=== PATIENT | male | born 1970 | race Hispanic/Latino ===

== ENCOUNTER 2016-12-19 12:27 | Emergency (ER) | payer OTHER ==
[~2016-12-19] VITALS: Ht 175.3 cm; Wt 95.3 kg
[2016-12-19 12:46] VITALS: BP 135/90
--- NOTE | 2016-12-19 13:16 | ED GI/GU/ABDOMINAL COMPLAINT ---
History of Present Illness General Chief Complaint: Abdominal Pain/Flank Pain Stated Complaint: ABD PAIN Source: patient Exam Limitations: no limitations Allergies Coded Allergies: No Known Allergies (12/19/16) Triage Note: PT TO ED FOR R SIDED ABD PAIN THAT BEGAN LAST NIGHT WELL "A SORE THROAT WHEN I COUGH." PT DENIES ANY N/V/D. REPORTING DRY COUGH BEGAN LAST NIGHT. Triage Nurses Notes Reviewed? yes HPI: Patient is a 46 year old male presents complaining of sore throat, cough and abdominal pain. Nasal congestion, cough, and sore throat onset 2 days ago. Mild epigastric pain x 1-2 days. Using chloraseptic spray with initial improvement of sore throat, no improvement today. Symptoms are currently moderate. Denies sick contacts, nausea, vomiting, urinary symptoms, dyspnea. (JEREMIAH FONTANEZ) Vital Signs & Intake/Output Vital Signs & Intake/Output ED Intake and Output / 0000 04 1200 Intake Total 0 Output Total Balance 0 Intake, Oral 0 Patient 210 lb Weight Reconcile Medications Albuterol Sulfate (Proair Hfa) 90 MCG HFA.AER.AD 2 PUF INH Q4-6 PRN PRN SOB, COUGH Azithromycin (Zithromax) 250 MG TABLET 1 DP PO AD BRONCHITIS 2 the first day followed by 1 for days 2-5 Benzonatate (Tessalon Perle) 100 MG CAPSULE 1 CAP PO TID COUGH Triage Nurses Notes Reviewed? yes (MELISA JACOBO) Past History Travel History Traveled to [place] past 21 day No Medical History Any Pertinent Medical History? none Neurological: NONE EENT: NONE Cardiovascular: NONE Respiratory: NONE Gastrointestinal: NONE Hepatic: NONE Renal: NONE Musculoskeletal: NONE Psychiatric: NONE Endocrine: NONE Blood Disorders: NONE Cancer(s): NONE SAP SOLUTIONS ARCHITECT/Reproductive: NONE Psychosocial History What is your primary language Malaysian Tobacco Use: Current Daily Use Daily Tobacco Use Amount/Type: => 5 Cigarettes daily ETOH Use: occasional use Illicit Drug Use: marijuana Family History Hx Contributory? No (JEREMIAH FONTANEZ) Surgical History Surgical History: non-contributory (MELISA JACOBO) Review of Systems Review of Systems Constitutional: Reports: chills. EENTM: Reports: nasal congestion, throat pain. Respiratory: Reports: cough. Denies: short of breath, wheezing. Cardiovascular: Denies: chest pain. GI: Reports: see HPI, abdominal pain. Denies: nausea, vomiting. Genitourinary: Reports: no symptoms. Musculoskeletal: Reports: no symptoms. Skin: Reports: no symptoms. Neurological/Psychological: Reports: no symptoms. Hematologic/Endocrine: Reports: no symptoms. Immunologic/Allergic: Reports: no symptoms. (JEREMIAH FONTANEZ) Physical Exam Physical Exam General Appearance: well developed/nourished, alert, awake Head: atraumatic, normal appearance Eyes: Bilateral: normal appearance, PERRL, EOMI. Ears, Nose, Throat, Mouth: hearing grossly normal, moist mucous membrane, Tympanic normal, left tonsillar 3+, right tonsil 1+. No visible peritonsillar abscess, no tonsillar exudates Neck: normal inspection, supple, full range of motion Respiratory: no respiratory distress, minimal intermittent end expiratory wheezing Cardiovascular: tachycardia (regular rhythm) Gastrointestinal: normal bowel sounds, soft, non-tender, negative leone's sign, negative mcburney's point tenderness Back: normal inspection, normal range of motion Extremities: normal range of motion Neurologic/Psych: no motor/sensory deficits, awake, alert, oriented x 3, normal gait, normal mood/affect Skin: intact, normal color, warm/dry (JEREMIAH FONTANEZ) Core Measures ACS in differential dx? No Severe Sepsis Present: No Septic Shock Present: No (MELISA JACOBO) Progress Differential Diagnosis: GASTRITIS, BRONCHITIS, COSTOCHONDRITIS, PLEURISY, UPPER RESPIRATORY INFECTION, SINUSITIS, PANCREATITIS Initial ED EKG: none Hand-Off Endorsed To: MELISA JACOBO Endorsed Time: 1343 Pending: labs (JEREMIAH FONTANEZ) Differential Diagnosis: GASTRITIS, BRONCHITIS, COSTOCHONDRITIS, PLEURISY, UPPER RESPIRATORY INFECTION, SINUSITIS, PANCREATITIS Plan of Care: Orders Procedure Date/time Status RAPID VIRAL INFLUENZA A 12/19 1322 Active THROAT CULTURE W/QUICK STREP 12/19 1321 Active URINALYSIS 12/19 1321 Active LIPASE 12/19 1321 Active COMPREHENSIVE METABOLIC PANEL 12/19 1321 Active CBC WITHOUT DIFFERENTIAL 12/19 1321 Active Microbiology 12/19 1326 NASOPHARYN: Influenza Virus A & B Rapid Smear - RECD Fever of 101.6 on initial exam. 1340: Signed out to Melisa Overton PA-C with labs pending. (JEREMIAH FONTANEZ) Comments: 12/19/2016 2:05:48 PM patient signed out to me pending lab work. 12/19/2016 2:36:04 PM patient reporting that he feels much better from by mouth medication he was given on arrival. Blood work unremarkable. Patient has had no abdominal pain on exam, is a daily smoker with history of cough. Patient will be treated for bronchitis. Started on Z-Ken, Tessalon Perles and pro-air. He'll follow up with his PCP. Educated on smoking cessation. (MELISA JACOBO) Departure Departure Condition: Stable Referrals: PATIENT HAS NO PRIMARY CARE DR (PCP/Family) Departure Forms: Customer Survey General Discharge Information (JEREMIAH FONTANEZ) Departure Time of Disposition: 2 Disposition: HOME OR SELF CARE Clinical Impression Primary Impression: Bronchitis Ruled Out Impressions: Upper respiratory disease Additional Instructions: Follow-up with your primary care physician call to make an appointment. Increase fluids. Take Z-Ken and Tessalon Perles, use albuterol inhaler as directed. Quit smoking as this will help avoid future exacerbations of bronchitis. Prescriptions: Current Visit Scripts Albuterol Sulfate (Proair Hfa) 2 PUF INH Q4-6 PRN PRN SOB,COUGH #1 INHAL Benzonatate (Tessalon Perle) 1 CAP PO TID #30 CAP Azithromycin (Zithromax) 1 DP PO AD #6 TAB 2 the first day followed by 1 for days 2-5 (MELISA JACOBO) PA/NURSE EPIDEMIOLOGIST Co-Sign Statement Statement: ED Attending supervision documentation- [] I saw and evaluated the patient. I have also reviewed all the pertinent lab results and diagnostic results. I agree with the findings and the plan of care as documented in the PA's/NURSE EPIDEMIOLOGIST's documentation. [X] I have reviewed the ED Record and agree with the PA's/NURSE EPIDEMIOLOGIST's documentation. [] Additions or exceptions (if any) to the PAs/NURSE EPIDEMIOLOGIST's note and plan are summarized below: [] (RADHA TORRES,TANMAY Gay)
[2016-12-19 14:01] LABS: ABSOLUTE BASOPHIL COUNT 0 /CUMM (0.0-0.2); ABSOLUTE EOSINOPHIL COUNT 0 /CUMM (0.0-0.7); ABSOLUTE LYMPH COUNT 1.5 /CUMM (1.2-3.4); ABSOLUTE MONOCYTE COUNT 1.4 /CUMM (0.10-0.60); BASOPHIL % 0.2 % (0.0-2.0); EOSINOPHIL % 0 % (0-5); GRANULOCYTE % 73.1 % (42.2-75.2); HEMATOCRIT 47.4 % (42-52); MEAN CORPUSCULAR HGB CONC 34.3 G/DL (33.0-37.0); MEAN CORPUSCULAR VOLUME 87.5 FL (80.0-94.0); MEAN PLATELET VOLUME 9.6 FL (7.4-10.4); PLATELET COUNT 118 /CUMM (130-400); RBC DISTRIBUTION WIDTH 13.4 % (11.5-14.5); RED BLOOD CELL CT 5.42 /CUMM (4.70-6.10); WHITE BLOOD CELL COUNT 10.9 /CUMM (4.8-10.8)
[2016-12-19] MEDS ORDERED: PROAIR HFA8.5 GM INH (14:34)
[2016-12-19] MEDS ORDERED: TESSALON PERLE100 M1 PO (14:34)
[2016-12-19] MEDS ORDERED: ZITHROMAX250 M2 PO (14:34)
== END 2016-12-19 14:56 ==
LOC: ERH 12:27
PROVIDERS: Physician Assistant
DX: J40 Bronchitis, not specified as acute or chronic (principal); J39.9 Disease of upper respiratory tract, unspecified; F17.210 Nicotine dependence, cigarettes, uncomplicated
CPT/HCPCS: 87804; 87804-59

== ENCOUNTER 2018-02-11 10:23 | Emergency (ER) | payer OTHER ==
[~2018-02-11] VITALS: Ht 175.3 cm; Wt 104.3 kg
[~2018-02-11 10:23] MED LIST: AMOXICILLIN500 M3 PO; BACTRIM DS TAB1 EACH PO; IBUPROFEN800 M1 PO; PROAIR HFA8.5 GM INH; TESSALON PERLE100 M1 PO; ZITHROMAX250 M2 PO
[2018-02-11 10:31] VITALS: BP 127/93
[2018-02-11] MEDS ORDERED: AMOXICILLIN500 M2 PO (11:16)
[2018-02-11] MEDS ORDERED: BACTRIM DS TAB1 EACH PO (11:16)
--- NOTE | 2018-02-11 11:18 | ED THROAT/DENTAL COMPLAINT ---
History of Present Illness General Chief Complaint: General Adult Stated Complaint: NEEDS MED REFILL Source: patient Exam Limitations: no limitations Vital Signs & Intake/Output Vital Signs & Intake/Output Vital Signs Date Time Temp Pulse Resp B/P B/P Pulse O2 O2 Flow FiO2 Mean Ox Delivery Rate 02/11 1031 97.8 106 20 127/93 96 Room Air Allergies Coded Allergies: No Known Allergies (12/19/16) Reconcile Medications Amoxicillin 500 MG TABLET 1 TAB PO TID abscess Amoxicillin 500 MG CAPSULE 1 CAP PO TID DENTAL ABSCESS Ibuprofen 800 MG TABLET 1 TAB PO TID PRN pain Sulfamethoxazole/Trimethoprim (Bactrim Ds Tablet) 800 MG-160 MG TABLET 1 TAB PO BID abscess Sulfamethoxazole/Trimethoprim (Bactrim Ds Tablet) 800 MG-160 MG TABLET 1 TAB PO BID DENTAL ABSCESS Triage Note: SEEN HERE 3 WEEKS AGO FOR DENTAL ABSCESS AND RX'D AMOXICILLAN. STATES IT WENT ALL THE WAY DOWN AND HE STOPPED TAKING THE MEDICATION. STATES THE ABSCESS IS BACK NOW. PT STATES HE HAS NO DENTAL INSURANCE Triage Nurses Notes Reviewed? yes HPI: Patient is a 48-year-old male with past medical history of a right-sided lower dental abscess who presents today for a medication refill. He had been seen previously and was prescribed Bactrim 800 mg twice daily and amoxicillin 500 mg 3 times daily. This brought his swelling down quickly and effectively, however he did not see a dentist during that time, and after cessation of the Bactrim, his swelling almost immediately returned. He denies pain, or any other complaints. Past History Travel History Traveled to [place] past 21 day No Medical History Any Pertinent Medical History? 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 No Review of Systems Review of Systems Constitutional: Reports: see HPI. Denies: chills, diaphoresis, fever, malaise, weakness. EENTM: Reports: tooth pain. Respiratory: Reports: no symptoms. Cardiovascular: Reports: no symptoms. GI: Reports: no symptoms. Genitourinary: Reports: no symptoms. Musculoskeletal: Reports: no symptoms. Skin: Reports: no symptoms. Neurological/Psychological: Reports: no symptoms. Hematologic/Endocrine: Reports: no symptoms. Immunologic/Allergic: Reports: no symptoms. All Other Systems: Reviewed and Negative Physical Exam Physical Exam Mouth/Throat: excessive drooling, mandibular swelling Comments: HEENT: Inspection of the head reveals a normocephalic cranium with no signs of trauma. Dental: There is obvious right-sided mandibular focal area of swelling consistent with dental abscess. No fluctuance that would be amenable to ED incision and drainage currently. No airway compromise whatsoever. Ophtho: Extraocular muscles are intact. The sclera are noninjected, and there is no obvious discharge. Neck: No signs of trauma or asymmetry to the neck. Respiratory: The patient exhibits no signs of labored breathing. Cardiac: Non-tachycardic. GI: No gross abdominal distention. : Deferred Neuro: The patient is oriented to person, place, time, and situation, with no obvious focal motor deficits. Cranial nerves II through XII are intact, and gait is normal. Behavioral: Calm and cooperative Dermatologic: Dermatologic examination reveals no obvious rashes or exanthems. Core Measures ACS in differential dx? No Sepsis Present: No Sepsis Focused Exam Completed? No Progress Differential Diagnosis: odontogenic abscess, meredith-tonsillar abscess, tooth fracture Plan of Care: Patient has plans to see a dentist, but was told that he could not be evaluated until the swelling went down. Bactrim was effective for his swelling previously , so I have refilled this prescription to his pharmacy along with the amoxicillin. He has no airway, minus, fever, chills, or any other concerns for sepsis or other constitutional processes at present. Meckel screening examination otherwise negative, patient stable at time of discharge. Will follow-up with dental for definitive infection control. Departure Departure Time of Disposition: 110 Disposition: HOME OR SELF CARE Condition: Stable Clinical Impression Primary Impression: Dental abscess Referrals: Patient Has No Primary Care Dr (PCP/Family) Additional Instructions: We have refilled your trimethoprim/sulfamethoxazole (Bactrim) and your amoxicillin. Once the swelling goes down, please see a dentist to get this taken care of. We recommend that you call to set up that appointment now in order to have it scheduled when the swelling decreases. Departure Forms: Customer Survey General Discharge Information Prescriptions: Current Visit Scripts Sulfamethoxazole/Trimethoprim (Bactrim Ds Tablet) 1 TAB PO BID #20 TAB Amoxicillin 1 CAP PO TID #30 CAP ED Attending Observation Initial Observation Note: I have seen and personally examined PINEDA REAL on 02/11/18 at 1125. I agree with the current emergency department documentation. The disposition (admission or discharge) is uncertain at this time, he needs a period of observation for the following reason(s): The ED Nurse caring for this patient has been personally informed as to what the patient is being observed for.
== END 2018-02-11 11:28 ==
LOC: ERH 10:23
DX: K04.7 Periapical abscess without sinus (principal)
CPT/HCPCS: 99281

== ENCOUNTER 2018-03-11 16:00 | Emergency (ER) | payer OTHER ==
[~2018-03-11] VITALS: Ht 175.3 cm; Wt 104.3 kg
[~2018-03-11 16:00] MED LIST changes: +AMOXICILLIN500 M2 PO
[2018-03-11 16:28] LABS: ABSOLUTE BASOPHIL COUNT 0 /CUMM (0.0-0.2); ABSOLUTE EOSINOPHIL COUNT 0.1 /CUMM (0.0-0.7); ABSOLUTE LYMPH COUNT 2.8 /CUMM (1.2-3.4); ABSOLUTE MONOCYTE COUNT 0.9 /CUMM (0.10-0.60); BASOPHIL % 0.3 % (0.0-2.0); EOSINOPHIL % 1.2 % (0-5); HEMATOCRIT 44.9 % (42-52); MEAN CORPUSCULAR HGB 29.9 PG (27.0-31.0); MEAN CORPUSCULAR HGB CONC 33.9 G/DL (33.0-37.0); MEAN CORPUSCULAR VOLUME 88.1 FL (80.0-94.0); MEAN PLATELET VOLUME 8.9 FL (7.4-10.4); PLATELET COUNT 189 /CUMM (130-400); RBC DISTRIBUTION WIDTH 13.8 % (11.5-14.5); RED BLOOD CELL CT 5.09 /CUMM (4.70-6.10); WHITE BLOOD CELL COUNT 9.8 /CUMM (4.8-10.8)
--- NOTE | 2018-03-11 16:45 | ED GI/GU/ABDOMINAL COMPLAINT ---
History of Present Illness General Chief Complaint: Abdominal Pain/Flank Pain Stated Complaint: RT SIDED ABD PAIN Source: patient Exam Limitations: no limitations Vital Signs & Intake/Output Vital Signs & Intake/Output Vital Signs Date Time Temp Pulse Resp B/P B/P Pulse O2 O2 Flow FiO2 Mean Ox Delivery Rate 03/11 1859 142/88 03/11 1604 97.2 77 18 149/100 98 Room Air Allergies Coded Allergies: No Known Allergies (12/19/16) Reconcile Medications Amoxicillin 500 MG TABLET 1 TAB PO TID abscess Amoxicillin 500 MG CAPSULE 1 CAP PO TID DENTAL ABSCESS Ibuprofen 800 MG TABLET 1 TAB PO TID PRN pain Sulfamethoxazole/Trimethoprim (Bactrim Ds Tablet) 800 MG-160 MG TABLET 1 TAB PO BID abscess Sulfamethoxazole/Trimethoprim (Bactrim Ds Tablet) 800 MG-160 MG TABLET 1 TAB PO BID DENTAL ABSCESS Triage Note: 48 YO MALE TO TRIAGE FOR EVAL OF ?HERNIA IN ABD FOR APPROX 6 MONTHS. STATES "I HAVE A LUMP ABOVE MY BELLY BUTTON" STATES +VOMITING TODAY. DENIES DIARRHEA Triage Nurses Notes Reviewed? yes Onset: Abrupt Duration: 6 months Timing: recent history Location: periumbilical Radiation: no radiation Activities at Onset: none HPI: 48-year-old male comes into the emergency room with pain around his belly button area for the last 6 months. Patient came in today as he had 1 episode of vomiting. Pain is sharp. Intermittent. Nonradiating. Moving his bowels normally. Denies any fever chills or any other system symptoms. (Francisco Javier Alanis) Past History Travel History Traveled to [place] past 21 day No Medical History Any Pertinent Medical History? 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 No (Francisco Javier Alanis) Review of Systems Review of Systems Constitutional: Reports: no symptoms. EENTM: Reports: no symptoms. Respiratory: Reports: no symptoms. Cardiovascular: Reports: no symptoms. GI: Reports: see HPI. Genitourinary: Reports: no symptoms. Musculoskeletal: Reports: no symptoms. Skin: Reports: no symptoms. Neurological/Psychological: Reports: no symptoms. Hematologic/Endocrine: Reports: no symptoms. Immunologic/Allergic: Reports: no symptoms. All Other Systems: Reviewed and Negative (Luciano CHINCHILLA,Francisco Javier) Physical Exam Physical Exam General Appearance: well developed/nourished, no apparent distress, alert, awake Head: atraumatic, normal appearance Eyes: Bilateral: normal appearance, EOMI. Ears, Nose, Throat, Mouth: hearing grossly normal, moist mucous membrane Neck: normal inspection Respiratory: normal breath sounds, no respiratory distress Gastrointestinal: soft, hernia, umbilical hernia redicible, no erythema Back: normal inspection Extremities: normal range of motion Neurologic/Psych: awake, alert, oriented x 3 Skin: intact, normal color Core Measures ACS in differential dx? No Sepsis Present: No Sepsis Focused Exam Completed? No (Francisco Javier Alanis) Progress Differential Diagnosis: appendicitis, SBO, hernia, strangulated hernia, Incarcerated hernia Plan of Care: Orders Procedure Date/time Status LACTIC ACID 03/11 1608 Complete COMPREHENSIVE METABOLIC PANEL 03/11 1608 Complete CBC WITHOUT DIFFERENTIAL 03/11 1608 Complete Laboratory Tests 03/11/18 1619: Anion Gap 9, Estimated GFR > 60, BUN/Creatinine Ratio 17.5, Glucose 119 H, Lactic Acid 1.2, Calcium 9.2, Total Bilirubin 0.2, AST 20, ALT 37, Alkaline Phosphatase 74, Total Protein 6.9, Albumin 4.1, Globulin 2.8, Albumin/Globulin Ratio 1.5, CBC w Diff NO MAN DIFF REQ, RBC 5.09, MCV 88.1, MCH 29.9, MCHC 33.9, RDW 13.8, MPV 8.9, Gran % 61.0, Lymphocytes % 28.7, Monocytes % 8.8, Eosinophils % 1.2, Basophils % 0.3, Absolute Granulocytes 6.0, Absolute Lymphocytes 2.8, Absolute Monocytes 0.9 H, Absolute Eosinophils 0.1, Absolute Basophils 0 Diagnostic Imaging: Viewed by Me: CT Scan. Discussed w/RAD: CT Scan. Radiology Impression: PATIENT: PINEDA REAL PRESENT AGE: 48 PATIENT ACCOUNT NO: [id number] : 72 LOCATION: [facility] ORDERING PHYSICIAN: Francisco Javier CHINCHILLA SERVICE DATE: 03/11/18 EXAM TYPE: CAT - CT ABD & PELVIS W IV CONTRAST EXAMINATION: CT ABDOMEN AND PELVIS WITH CONTRAST CLINICAL INFORMATION: Umbilical hernia, Reducible on exam. Abdominal pain. Vomiting. COMPARISON: None TECHNIQUE: Multidetector volumetric imaging was performed of the abdomen and pelvis following IV administration of 95 mL of Optiray 320 intravenous contrast. Sagittal and coronal reformatted images were obtained on the technologist's workstation. DLP: 628.19 mGy-cm FINDINGS: LUNG BASES: The visualized lung bases are unremarkable. LIVER, GALLBLADDER, AND BILIARY TREE: The liver is normal in size, shape, and attenuation. No focal hepatic lesion or biliary ductal dilatation is present. The gallbladder is unremarkable with no evidence of radiopaque gallstones, gallbladder wall thickening, or obvious pericholecystic inflammatory changes. PANCREAS: Unremarkable. SPLEEN: Unremarkable. ADRENAL GLANDS: Unremarkable. KIDNEYS AND URETERS: There is a pedunculated cortical cyst at the upper pole of the right kidney. Measures 6.3 cm. There is a small thin linear calcification in the septation in the cyst. There is no suspicious renal lesion. There is no calculus and no hydronephrosis of the kidney. There is no ureteral calculi. No hydroureter. BLADDER: Unremarkable. GASTROINTESTINAL TRACT: The small and large bowel are unremarkable. The appendix is unremarkable. ABDOMINAL WALL: There is a fat- containing umbilical hernia. Small amount of fluid is in the hernia sac as well. The hernia sac measures 3.2 x 2.5 x 3.6 cm. The defect in the abdominal wall measures 0.8 cm superior inferior by 1.3 cm transverse. No bowel extends into the hernia. LYMPH NODES: Normal. VASCULAR: Unremarkable. PELVIC VISCERA: Unremarkable. OSSEOUS STRUCTURES: Degenerative spondylosis spine with multilevel bridging endplate spurs of thoracic vertebrae. IMPRESSION: There is a fat- containing umbilical hernia with small amount of fluid in the hernia sac but there is no herniation of bowel loops. There is no acute change of the bowel. No bowel obstruction. DICTATED BY: German Nelson MD DATE/TIME DICTATED:03/11/181819 SECURITY NURSE:TEZ DATE/TIME TRANSCRIBED:03/11/181819 CONFIDENTIAL, DO NOT COPY WITHOUT APPROPRIATE AUTHORIZATION. <Electronically signed in Other Vendor System> SIGNED BY: German Nelson MD 03/11/18 1844 Initial ED EKG: none Comments: 03/11/2018 7:04:38 PM Patient clinically looks well. In no apparent distress. Nontoxic-appearing. No bowel and hernia. Hernia is reducible on exam. Referred to general surgeon. Clinically looks well. In no apparent distress. Understands and agrees a plan of care. No acute abdomen. Patient is anxious to leave and was about to take his IV out and that he needs to go. He is in no distress on discharge. (Francisco Javier Alanis) Departure Departure Disposition: HOME OR SELF CARE Condition: Stable Clinical Impression Primary Impression: Umbilical hernia Referrals: Nir Bains DO Patient Has No Primary Care Dr (PCP/Family) Additional Instructions: Follow-up with general surgeon. Return if any concerns worsening symptoms. Please go over all results of today's visit with your primary care doctor. Contact your primary care doctor to let them know you were here in the emergency room. There may be nonspecific findings which may not be related to your visit today here in the emergency room but may require further evaluation and chronic monitoring by your primary care doctor. If you had a laceration today the chance of foreign body always remains. You should follow-up with your primary care doctor for recheck in 3-5 days for a wound check. If you had an x-ray done there is a chance that a fracture could have been missed on initial read and you should follow-up with your primary care doctor for repeat x-rays if symptoms persist. If your blood pressure was elevated here in the emergency room please have rechecked by [facility] primary care doctor within the next 48. If you were prescribed a narcotic here in the emergency room or any type of controlled substances you're not allowed to drive while taking this medication or operate any type of heavy machinery. Narcotics can make you feel lightheaded dizziness nausea and can cause constipation. You may need to milk pickup driver a stool softener. Thank you for choosing [facility] emergency room. Please return to the emergency room immediately if you have any other concerns worsening of symptoms. Departure Forms: Customer Survey General Discharge Information (Francisco Javier Alanis) PA/INSPECTOR QUALITY ASSURANCE Co-Sign Statement Statement: ED Attending supervision documentation- [] I saw and evaluated the patient. I have also reviewed all the pertinent lab results and diagnostic results. I agree with the findings and the plan of care as documented in the PA's/INSPECTOR QUALITY ASSURANCE's documentation. [x] I have reviewed the ED Record and agree with the PA's/INSPECTOR QUALITY ASSURANCE's documentation. [] Additions or exceptions (if any) to the PAs/INSPECTOR QUALITY ASSURANCE's note and plan are summarized below: [] (Hossein Whitaker DO)
--- NOTE | 2018-03-11 18:44 | CT SCAN REPORT ---
EXAMINATION: CT ABDOMEN AND PELVIS WITH CONTRAST CLINICAL INFORMATION: Umbilical hernia, Reducible on exam. Abdominal pain. Vomiting. COMPARISON: None TECHNIQUE: Multidetector volumetric imaging was performed of the abdomen and pelvis following IV administration of 95 mL of Optiray 320 intravenous contrast. Sagittal and coronal reformatted images were obtained on the technologist's workstation. DLP: 628.19 mGy-cm FINDINGS: LUNG BASES: The visualized lung bases are unremarkable. LIVER, GALLBLADDER, AND BILIARY TREE: The liver is normal in size, shape, and attenuation. No focal hepatic lesion or biliary ductal dilatation is present. The gallbladder is unremarkable with no evidence of radiopaque gallstones, gallbladder wall thickening, or obvious pericholecystic inflammatory changes. PANCREAS: Unremarkable. SPLEEN: Unremarkable. ADRENAL GLANDS: Unremarkable. KIDNEYS AND URETERS: There is a pedunculated cortical cyst at the upper pole of the right kidney. Measures 6.3 cm. There is a small thin linear calcification in the septation in the cyst. There is no suspicious renal lesion. There is no calculus and no hydronephrosis of the kidney. There is no ureteral calculi. No hydroureter. BLADDER: Unremarkable. GASTROINTESTINAL TRACT: The small and large bowel are unremarkable. The appendix is unremarkable. ABDOMINAL WALL: There is a fat-containing umbilical hernia. Small amount of fluid is in the hernia sac as well. The hernia sac measures 3.2 x 2.5 x 3.6 cm. The defect in the abdominal wall measures 0.8 cm superior inferior by 1.3 cm transverse. No bowel extends into the hernia. LYMPH NODES: Normal. VASCULAR: Unremarkable. PELVIC VISCERA: Unremarkable. OSSEOUS STRUCTURES: Degenerative spondylosis spine with multilevel bridging endplate spurs of thoracic vertebrae. IMPRESSION: There is a fat-containing umbilical hernia with small amount of fluid in the hernia sac but there is no herniation of bowel loops. There is no acute change of the bowel. No bowel obstruction.
[2018-03-11 18:59] VITALS: BP 142/88
== END 2018-03-11 19:00 ==
LOC: ERH 16:00
PROVIDERS: Physician Assistant Medical
DX: K42.9 Umbilical hernia without obstruction or gangrene (principal)
CPT/HCPCS: 74177

== ENCOUNTER → 2018-04-08 | Day surgery (SDC) | payer OTHER ==
[~2018-04-08] VITALS: Ht 175.3 cm; Wt 115.7 kg
[~2018-04-08] MED LIST changes: +PERCOCET 5-3251 EACH PO
--- NOTE | 2018-04-08 11:16 | Operative Report ---
Operative/Inv Procedure Report Surgery Date: 04/08/18 Name of Procedure: Open repair ventral periumbilical hernia with mesh Pre-Operative Diagnosis: Incarcerated periumbilical ventral heria Post-Operative Diagnosis: Same Estimated Blood Loss: less than 50ml Surgeon/Glass Blowing Instructor: Nir Bains DO Anesthesia: laryngeal mask airway IV Fluids: 800 cc Drains: None Specimens: Hernia sac and contents Complications: None Condition: Stable Operative Indication: This is a 48-year-old male who presented to the office after being seen in the emergency room for pain and swelling around umbilicus. Patient underwent a CT scan in the emergency room that showed an incarcerated umbilical hernia. An open periumbilical ventral hernia repair with mesh was discussed in detail. All risks including but not limited to bleeding, infection, and recurrence were discussed in detail. The patient understood everything and decided to proceed. Operative/Procedure Note Note: The patient was brought to the operating room and placed on the table in supine position. Venodyne stockings were placed in adequate general anesthesia with LMA was obtained. The patient was prepped and draped in standard surgical fashion. A 4-5 cm incision was made transversely in the infraumbilical crease. The incision was carried through the subcutaneous tissue to the fascia. The umbilical stalk with the hernia contents was then circumferentially dissected and the umbilicus was detached from the hernia sac using Bovie electrocautery making sure not to violate the skin. Once the umbilicus was off we noted a hernia sac with fatty contents that was incarcerated. The hernia sac and the contents were circumferentially excised using Bovie electrocautery maintaining hemostasis. At the completion approximately a 1-1-1/2 cm defect was noted. A 4.6 cm Bard ventral hernia patch was then opened and placed through the defect below the fascia. The straps were then retracted up in the air and the mesh was secured in 4 corners using 2-0 Prolene suture. The straps were cut and the mesh was examined that appeared to be laying flat up against the anterior abdominal wall. The fascia was closed over the mesh using 0 Vicryl suture. The cavity was irrigated until clear, no bleeding was noted. The umbilicus was then reattached to the anterior abdominal wall using 3-0 Vicryl suture. Subcutaneous tissue was closed using 3-0 Vicryl as well. Skin was closed using 4-0 Vicryl. Steri-Strips and dressings were placed. The patient was successfully extubated and transferred to the recovery room in stable condition. The patient tolerated the procedure well with no complications. Findings: ~1.5 cm periumbilical defect, 4.6 cm Bard hernia patch used
== END ==
LOC: STS 01:57
DX: K42.0 Umbilical hernia with obstruction, without gangrene (principal); F17.200 Nicotine dependence, unspecified, uncomplicated; E66.9 Obesity, unspecified
CPT/HCPCS: C1781; J0131; J0690; J2250; J3490